=== PATIENT | male | born 1965 | race Caucasian/White ===

== ENCOUNTER 2021-03-27 15:58 | Emergency (ER) | payer OTHER, BC ==
[2021-03-27] MEDS ORDERED: Propofol 200 MG/20 ML SDV IV ONE (15:59)
[2021-03-27] MEDS ORDERED: Ketorolac 30 MG/ML SDV IVPUSH ONE (15:59)
--- NOTE | 2021-03-27 16:44 | EDM.PDOC ---
ED HPI GENERAL MEDICAL PROBLEM - General Chief Complaint: Upper Extremity Injury/Pain Stated Complaint: ??? Time Seen by Provider: 03/27/21 16:20 Source of Information: Reports: Patient History Limitations: Reports: No Limitations - History of Present Illness INITIAL COMMENTS - FREE TEXT/NARRATIVE: Patient was in his normal state of health when he fell at work and injured his right shoulder. Patient thinks that he may have dislocated his right shoulder. He denied all review of systems prior to the fall including fever, chills, upper respiratory symptoms, chest pain, shortness of breath, change in bowel or bladder habits. He has no significant past medical history. right shoulder Pain Score (Numeric/FACES): 5 - Related Data Allergies Allergy/AdvReac Type Severity Reaction Status Date / Time No Known Allergies Allergy Verified 03/27/21 16:04 Past Medical History Cardiovascular History: Reports: High Cholesterol, Hypertension Social & Family History - Family History Family Medical History: No Pertinent Family History - Tobacco Use Tobacco Use Status *Q: Never Tobacco User Second Hand Smoke Exposure: No - Caffeine Use Caffeine Use: Reports: Coffee, Soda, Tea Other Caffeine Use: iced tea. - Recreational Drug Use Recreational Drug Use: No Review of Systems - Review of Systems Review Of Systems: See Below Constitutional: Reports: No Symptoms Eyes: Reports: No Symptoms Ears: Reports: No Symptoms Nose: Reports: No Symptoms Mouth/Throat: Reports: No Symptoms Respiratory: Reports: No Symptoms Cardiovascular: Reports: No Symptoms GI/Abdominal: Reports: No Symptoms Genitourinary: Reports: No Symptoms Musculoskeletal: Reports: Shoulder Pain, Arm Pain Skin: Reports: No Symptoms Neurological: Reports: No Symptoms Psychiatric: Reports: No Symptoms ED EXAM, GENERAL - Physical Exam Exam: See Below Exam Limited By: No Limitations General Appearance: Alert, No Apparent Distress Eye Exam: Bilateral Eye: EOMI Head: Atraumatic, Normocephalic Neck: Normal Inspection, Non-Tender. No: Lymphadenopathy (R), Lymphadenopathy (L) Respiratory/Chest: No Respiratory Distress, Lungs Clear, Normal Breath Sounds Cardiovascular: Regular Rate, Rhythm, No Murmur Peripheral Pulses: 2+: Radial (L), Radial (R), Dorsalis Pedis (L), Dorsalis Pedis (R) GI/Abdominal: Normal Bowel Sounds, Soft, Non-Tender Back Exam: Normal Inspection. No: CVA Tenderness (R), CVA Tenderness (L) Extremities: Normal Inspection, No Pedal Edema Neurological: Alert, Oriented, CN II-XII Intact, Normal Cognition Psychiatric: Normal Affect, Normal Mood Skin Exam: Warm, Dry, Intact Course - Vital Signs Text/Narrative:: Please see anesthesiology notes. Patient was sedated and his right shoulder was reduced using traction and external rotation. Patient has feeling in all 5 digits, expander strength is 5 out of 5, patient is able to move all 5 digits and pronate and supinate the forearm. He is able to internally externally rotate the shoulder but at this point does not feel that he has the ability to abduct or flex the shoulder. Reduction x-ray sent to [facility] for reading. Post reduction x-ray shows shinto of the femoral head and glenoid consistent with successful reduction. A coworker of the patient called and informed us that he lost consciousness after the fall. I performed logical examination. As follows: PERRLA, extraocular muscles intact Proprioception intact in the bilateral upper lower extremities Cranial nerves II through XII grossly intact with expander strength still 5 out of 5 in the right upper extremity Range of motion testing of the neck is within normal limits without pain in all planes There is no tenderness to palpation along the cervical, thoracic, or lumbar sinus process No sensory deficits Last Recorded V/S: Last Vital Signs Temp 35.9 C L 03/27/21 16:00 Pulse 68 03/27/21 16:00 Resp 17 03/27/21 16:00 BP 147/91 H 03/27/21 16:00 Pulse Ox 97 03/27/21 16:00 - Orders/Labs/Meds Orders: Active Orders 24 hr Category Date Time Status Shoulder 1V Rt [CR] Stat Exams 03/27/21 16:15 Taken Shoulder Comp Rt [CR] Stat Exams 03/27/21 16:13 Taken Departure - Departure Time of Disposition: 19:26 Disposition: Home, Self-Care 01 Condition: Good Clinical Impression: Dislocation of right shoulder joint, Fall, Concussion - Discharge Information *PRESCRIPTION DRUG MONITORING PROGRAM REVIEWED*: Not Applicable *COPY OF PRESCRIPTION DRUG MONITORING REPORT IN PATIENT OLLIE: Not Applicable Instructions: Head Injury, Adult, Shoulder Dislocation, Concussion, Adult Referrals: Ruchi Santos NP [Primary Care Provider] - Forms: ED Department Discharge Additional Instructions: Patient advised to rest, ice, and alternate Tylenol and ibuprofen for pain control. Patient strongly advised to follow-up with his primary care physician. Sepsis Event Note (ED) - Evaluation Sepsis Screening Result: No Definite Risk - Focused Exam Vital Signs: Vital Signs Temp Pulse Resp BP Pulse Ox 03/27/21 16:00 35.9 C L 68 17 147/91 H 97 - My Orders Last 24 Hours: My Active Orders 03/27/21 16:13 Shoulder Comp Rt [CR] Stat 03/27/21 16:15 Shoulder 1V Rt [CR] Stat - Assessment/Plan Last 24 Hours: My Active Orders 03/27/21 16:13 Shoulder Comp Rt [CR] Stat 03/27/21 16:15 Shoulder 1V Rt [CR] Stat
== END 2021-03-27 19:35 | disposition home or self-care (01) ==
LOC: FB.ED 15:58
DX: S06.0X0A Concussion without loss of consciousness, initial encounter (principal); S43.004A Unspecified dislocation of right shoulder joint, initial encounter; S43.014A Anterior dislocation of right humerus, initial encounter; W18.39XA Other fall on same level, initial encounter; Y99.0 Civilian activity done for income or pay
CPT/HCPCS: 01610-QZ; 23650; 73020-RT; 73030-RT; 99152; 99283-25; J1885; J2704

== ENCOUNTER 2021-03-29 16:00 | Emergency (ER) | payer OTHER, BC ==
[2021-03-29] MEDS ORDERED: Ketamine 500 mg/10 ML MDV IV ONE (16:01)
[2021-03-29] MEDS ORDERED: Midazolam 1 MG/ML 2 ML SDV IV ONE (16:01)
[2021-03-29] MEDS ORDERED: Lactated Ringers 1,000 ML IV ONE (16:01)
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
[2021-03-29] MEDS ORDERED: Morphine 2 MG/ML SYRINGE IVPUSH ONE (19:08)
--- NOTE | 2021-03-29 19:39 | CR ---
INDICATION: Postreduction. RIGHT SHOULDER, PORTABLE: Single image of the shoulder was obtained 03/29/21 at 1651 hours and compared with images from the clinic dated same date and time- stamped 1451 hours This portable study shows continued anteroinferior dislocation of the humerus. A second postreduction image was obtained portable at 1702 hours and shows apparent reduction of the anteroinferior dislocation of the humerus. A definite fracture site is not identified. Degenerative changes are noted at the shoulder joints. IMPRESSION: Reduction of anteroinferior dislocation, as visualized on a single AP view, labeled number 2. MTDD
== END 2021-03-29 19:20 | disposition home or self-care (01) ==
LOC: FB.ED 16:00
DX: M24.411 Recurrent dislocation, right shoulder (principal); I10 Essential (primary) hypertension
CPT/HCPCS: 01730; 23655; 73020; 99283; J2250; J7120